=== PATIENT | female | born 1975 | race Caucasian/White ===

== ENCOUNTER 2017-12-30 08:14 | Day surgery (SDC) | payer OTHER ==
--- NOTE | 2017-12-29 13:53 | EKG ---
Test Date: 2017-12-29 Test Time: 13:37:55 Person Investigator: YOLANDA MEASUREMENT RESULTS: Intervals: Rate: 90 MO: 152 QRSD: 90 QT: 364 QTc: 445 [place]: P: 67 MO: 152 QRS: 51 T: 57 INTERPRETIVE STATEMENTS: Normal sinus rhythm Normal ECG Compared to ECG 04/13/2007 22:30:07 No significant changes Electronically Signed On 12-29-17 13:52:59 CDT by Kamar Penn
--- NOTE | 2017-12-29 13:59 | RAD REPORT ---
EXAM DESCRIPTION: RAD - Chest Pa And Lat (2 Views) - 12/29/2017 1:54 pm CLINICAL HISTORY: preop Chest pain. COMPARISON: CHEST PA AND LAT 2 VIEW dated 12/13/2005 FINDINGS: The lungs are clear. The heart is normal in size. No displaced fractures. IMPRESSION: No acute or concerning finding suspected.
[2017-12-29 14:02] LABS: Absolute Lymphocytes (CBC) 3.7 K/uL (0.7-4.9); Absolute Monocytes 0.8 K/uL (0.1-1.3); Absolute Neutrophil 7.5 K/uL (1.8-8.0); Eosinophils % 4.2 % (0-4.4); Hematocrit 40.1 % (36.0-45.0); Lymphocytes % 28.9 % (15.3-44.8); MCH 26.1 pg (27.0-35.0); MCV 79.5 fL (80-100); Monocytes % 6.4 % (3.3-12.3); RBC Red Blood Cell Count 5.05 M/uL (3.86-4.86)
[2017-12-29 15:09] LABS: Potassium 4.2 mmol/L (3.5-5.1)
[2017-12-30] MEDS: NA CHLORIDE 0.9% 1,000 ML ONE ×2 (08:58→09:38)
[2017-12-30] MEDS ORDERED: CIPROFLOXACIN 400mg IV 400 MG/200 ML BAG IV ONE (09:44)
[2017-12-30] MEDS ORDERED: MIDAZOLAM HCL 2 MG/2 ML INJ ONE (09:51)
[2017-12-30] MEDS ORDERED: LIDOCAINE 1% MPF 5 ML VIAL ONE (09:51)
[2017-12-30] MEDS ORDERED: PROPOFOL 200 MG/20 ML VIAL IV ONE (09:51)
[2017-12-30] MEDS ORDERED: FENTANYL CITR 100 MCG/2 ML ONE ×2 (09:51→10:25)
[2017-12-30] MEDS ORDERED: ROCURONIUM 50 MG/5 ML VIAL IV ONE (09:51)
[2017-12-30] MEDS ORDERED: METOCLOPRAMIDE 10 MG/2mL INJ ONE (10:04)
[2017-12-30] MEDS ORDERED: KETOROLAC 30 MG/ML INJ ONE (10:07)
[2017-12-30] MEDS ORDERED: ONDANSETRON 4 MG/2 ML VIAL ONE (10:07)
[2017-12-30] MEDS ORDERED: NEOSTIGMINE 1 MG/ML -5 ML SYRINGE ONE (10:28)
[2017-12-30] MEDS ORDERED: GLYCOPYRROLATE 0.2 MG/ML SYR ONE (10:28)
[2017-12-30] MEDS ORDERED: NA CHLORIDE 0.9% 1,000 ML ONE (10:30)
--- NOTE | 2017-12-30 11:08 | P.BOP ---
Preoperative diagnosis: incisional incarcerated tender ventral hernia, obesity Postoperative diagnosis: same Primary procedure: open repair of incisional incarcerated tender ventral hernia with mesh Estimated blood loss: <20cc Specimen: hernia sac, incarcerated omentum Findings: see dictation Anesthesia: Local Complications: None Transferred to: Recovery Room Condition: Good
[2017-12-30] MEDS: MEPERIDINE HCL 50 MG/ML AMP ONE ×4 (11:26→11:51)
[2017-12-30] MEDS: HYDROMORPHONE HCL 1 MG/ML INJ ONE ×4 (12:00→12:24)
[2017-12-30] MEDS ORDERED: HYDROCODONE/APAP 5/325 MG TAB ONE (13:26)
[2017-12-30 13:31] VITALS: TEMP 97
[2017-12-30 13:48] VITALS: BP 126/76; O2SAT 96
--- NOTE | 2017-12-30 22:58 | OP ---
Date of Procedure: 12/30/2017 Surgeon: Jeremy Shankar MD Diagnoses: Incisional incarcerated tender ventral hernia, morbid obesity. Postoperative Diagnoses: Incisional incarcerated tender ventral hernia, morbid obesity. Procedures: Open repair of an incisional incarcerated tender ventral hernia with mesh. Estimated Blood Loss: Less than 20 cc. Anesthesia: General plus local. Findings: The patient had incarcerated omentum that needs to be partially removed inside the large h ernia sac. Indications: This is a case of a 42-year-old patient who came to us with a large tender incisional i ncarcerated hernia in the lower abdomen with pain. The benefits, alternatives, and risks of repair w ere fully explained to the patient, which include but are not limited to infection, bleeding, damage to adjacent structures, anesthesia complication, recurrence, MA, and even . She also understand s this may not relieve any symptoms. She might need more than one surgical intervention. She unders tands the importance of losing weight and avoiding heavy lifting. She understands she may need a mes h in that region. The mesh pros and cons were fully explained to the patient. All questions were an swered to her satisfaction and she did allow me to use mesh. Description Of Procedure: The patient was brought to the operating room and placed in supine positio n. Anesthesia was done without complication. The abdominal area was prepped and draped in usual lobito rile fashion. Local anesthetic was applied followed by a sharp incision of the skin after a time-out . Incision was carried down to fascia. The patient had a thick abdominal wall, so there was a lot o f omentum on a cavity on the abdominal wall. The hernia sac was opened, the omentum could not be red uced, so we proceeded to ligate those between Hilda clamps and 0 chromic. Once the omentum left behi nd was inspected, then it was allowed to reduce back into the abdominal cavity with no bleeding. Her gina sac was removed. Noted the quality of the fascia required reinforcement with mesh, so we removed the hernia sac, cleaned the fascial edges, put a Ventralex mesh, and opened the intraabdominal regio n strap coming through the incision. The mesh was secured to the fascia with 2-0 Prolene in multiple locations. Straps were removed. The mesh looks nice and flat against the abdominal wall with no bree wel in-between. After that, we approximated the fascial edges after trimming them with #1 PDS in fig ure-eight fashion multiple times until closed. The area was irrigated. There was a large empty spac e in the abdominal wall due to the bulging that was reduced in that area. So, we tried to obliterate the space the best we can with 0 chromic and then the skin in subcuticular fashion with 3-0 chromic and a Steri-Strip on top. Sponge count and instrument counts were correct. The patient tolerated th e procedure well. The patient was sent to recovery room in stable condition. Diagnosis: Incisional incarcerated tender ventral hernia. Procedures: Open repair of an incisional incarcerated tender ventral hernia with mesh. Disposition: Home. Activity: As tolerated. No heavy lifting. Followup: Follow up in my office in 1 week. Call for appointment on [phone]. Keep area dry for 48 hours, then may shower. Keep Steri-Strips intact. Replace the cotton ball once removed. Medications: Vicodin q.4 hours p.r.n. pain, Bactrim DS p.o. b.i.d., and Zofran 4 every 4 hours p.r.n . nausea. CECE/JI Voice ID: [id number] Report ID: [id number]
== END 2017-12-30 14:28 | disposition home or self-care (01) ==
LOC: OR 08:14
PROVIDERS: ATTEND Surgery
PROC: 0WUF0JZ Supplement Abdominal Wall with Synthetic Substitute, Open Approach (ICD-10-PCS; principal; 2017-12-30 10:15)
DX: K43.0 Incisional hernia with obstruction, without gangrene (principal); E11.9 Type 2 diabetes mellitus without complications; E07.9 Disorder of thyroid, unspecified; K21.9 Gastro-esophageal reflux disease without esophagitis; J45.909 Unspecified asthma, uncomplicated; E66.01 Morbid (severe) obesity due to excess calories; Z68.43 Body mass index [BMI] 50.0-59.9, adult; Z88.1 Allergy status to other antibiotic agents; Z90.49 Acquired absence of other specified parts of digestive tract; Z83.3 Family history of diabetes mellitus; Z82.49 Family history of ischemic heart disease and other diseases of the circulatory system
CPT/HCPCS: 36415; 71046; 80048; 82962; 84703; 85025; 88302; 93005; J0744; J1170; J2175; J2250; J2405; J2704; J2710; J2765; J3010; J7030